=== PATIENT | male | born 1990 | race African-American/Black ===

== ENCOUNTER 2017-12-05 19:55 | Emergency (ER) | payer SELFPAY ==
--- NOTE | 2017-12-05 21:19 | RAD ---
CHEST TWO VIEWS: 12/05/17 HISTORY: Pain and cough. COMPARISON: None. FINDINGS: Normal cardiac silhouette. The pulmonary vessels and hilum are normal. Costophrenic angles are clear. No mass. No consolidation. No pneumothorax or osseous abnormalities. IMPRESSION: No acute cardiopulmonary process. POS: [facility]
== END 2017-12-05 21:46 | disposition home or self-care (01) ==
LOC: ERS 19:55
DX: R07.89 Other chest pain (principal); F17.210 Nicotine dependence, cigarettes, uncomplicated; Z71.6 Tobacco abuse counseling
CPT/HCPCS: 71046; 93005; 99406